=== PATIENT | male | born 1940 | race African-American/Black ===

== ENCOUNTER 2023-04-28 11:13 | Outpatient (AMB) | payer MEDICARE, MEDICAID, SELFPAY ==
--- NOTE | 2023-04-28 11:21 | AM.OFFWIN_ITS ---
Intake Vital Signs 04/28/23 11:28 Height 5 ft 10 in Weight 143 lb BMI 20.5 BP 160/100 H Blood Pressure Location Lt brachial Position Sitting Pulse 79 Pulse Source Pulse Oximeter Temp 97.8 F Pulse Oximetry (%) 98 Oxygen Delivery Method Room Air Intake Visit Reasons: Trouble urinating Intake Note: pt is here today for trouble urinating started yesterday Patient Tobacco Use Status: Never used Tobacco Allergies No Known Allergies Allergy (Verified 04/28/23 11:22) Do you need a note to return to daycare/school/sports/work: No HPI HPI Comments History of Present Illness Details Patient presents to the walk in today with complaints of urinary retention and right groin pain since last night. Patient reports he feels the urge to void but is not able to completely empty his bladder. Has a history of enlarged prostate which he takes medication for, has been taking as prescribed. He reports constant dull pain to the groin with intermittent sharp pains when he tries to void. Patient has been evaluated in the ER for this in the past requiring in-dwelling catheter. [facility] Social History Patient Tobacco Use Status: Never used Tobacco Review of Systems Const All systems reviewed & are unremarkable except as noted in HPI and below Physical Exam Vital Signs: Last Vital Signs Temp 97.8 F 04/28/23 11:28 Pulse 79 04/28/23 11:28 BP 160/100 H 04/28/23 11:28 Pulse Ox 98 04/28/23 11:28 Oxygen Delivery Method Room Air 04/28/23 11:28 BMI result Body Mass Index 20.5 General: awake, alert, oriented. Answers questions appropriately. Fully engaged in examination. Skin: warm, dry, intact HEENT: Normocephalic. Hearing intact. Cardiac: External chest normal in appearance. Respiratory: No cough, audible wheezing or stridor. Abdomen: bladder distension MS: No obvious swelling or deformities. Neurological: Oriented to person, place, time and situation. Thought process intact. Psychiatric: Appropriate mood and affect. Good judgment and insight. Results AMB Urinalysis, Automated UA Leukoctes 0 Silvestre/uL Last Edit by Zelalem Mcmahan CMA on 04/28/23 13:02 UA Nitrite Negative Last Edit by Zelalem Mcmahan CMA on 04/28/23 13:02 UA Urobilinogen 0.2 mg/dL Last Edit by Zelalem Mcmahan CMA on 04/28/23 13 :02 UA Protein 0 mg/dL Last Edit by Zelalem Mcmahan CMA on 04/28/23 13:02 UA pH 6.0 Last Edit by Zelalem Mcmahan CMA on 04/28/23 13:02 UA Blood 0 Douglas/uL Last Edit by Zelalem Mcmahan CMA on 04/28/23 13:02 UA Specific [place] 1.015 Last Edit by Zelalem Mcmahan CMA on 04/28/23 13:02 UA Ketone Negative Last Edit by Zelalem Mcmahan CMA on 04/28/23 13:02 UA Bilirubin 0 mg/dL Last Edit by Zelalem Mcmahan CMA on 04/28/23 13:02 UA Glucose 0 mg/dL Last Edit by Zelalem Mcmahan CMA on 04/28/23 13:02 Results Reviewed Results Reviewed: Laboratory Last Values Urine pH (Auto) 6.0 04/28/23 13:02 Specific [place] (Auto) 1.015 04/28/23 13:02 Urine Protein (Auto) 0 mg/dL 04/28/23 13:02 Glucose (UA)(Auto) 0 mg/dL 04/28/23 13:02 Urine Ketones (Auto) Negative 04/28/23 13:02 Urine Blood (Auto) 0 Douglas/uL 04/28/23 13:02 Urine Nitrite (Auto) Negative 04/28/23 13:02 Urine Bilirubin (Auto) 0 mg/dL 04/28/23 13:02 Urine Urobilinogen (Auto) 0.2 mg/dL 04/28/23 13:02 Leukocyte Esterase (Auto) 0 Silvestre/uL 04/28/23 13:02 Assessment & Plan Assessment & Plan (1) Urinary retention: Code(s): R33.9 - Retention of urine, unspecified (2) Enlarged prostate: Code(s): N40.0 - Benign prostatic hyperplasia without lower urinary tract symptoms Plan Patient presented to the walkin today with complaints of urinary retention and groin pain. UA completed, neg blood, neg leuks, neg nitrites No bladder scanner available. Treatment with urinary catheter not available at this walk-in Patient referred to the ER for E/M. Concern for blockage, stone, infection most likely requiring urinary catheter and potential for CT/US. Patient and son verbalize understanding, agree to plan. They prefer [facility] d/t proximity to their home and previously established patient relationship with the facility. Orders: Orders AMB Urinalysis Automated Today Z13.9 - Encounter for screening, unspecified Coding Level of Care Code Est Pt Level 4 (98364) Diagnoses Urinary retention R33.9 Enlarged prostate N40.0
[2023-04-28 11:28] VITALS: BP 160/100; PULSE 79; TEMP 36.6; O2SAT 98; BMI 20.5
== END 2023-04-28 13:18 | disposition home or self-care (01) ==
PROVIDERS: PCP Physician Assistant Medical; Visit Provider Registered Nurse Emergency
DX: R33.9 Retention of urine, unspecified (principal); N40.0 Benign prostatic hyperplasia without lower urinary tract symptoms
CPT/HCPCS: 81003; 99204

== ENCOUNTER 2023-05-06 09:32 | Outpatient (AMB) | payer MEDICARE, MEDICAID, SELFPAY ==
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
[2023-05-06 10:06] VITALS: BP 120/80; PULSE 73; O2SAT 79; BMI 20.8
== END 2023-05-06 10:50 | disposition home or self-care (01) ==
PROVIDERS: PCP Physician Assistant Medical; Visit Provider Psychiatry & Neurology Neurology
DX: F03.90 Unspecified dementia, unspecified severity, without behavioral disturbance, psychotic disturbance, mood disturbance, and anxiety (principal); F42.3 Hoarding disorder
CPT/HCPCS: 99204

== ENCOUNTER → 2023-05-06 09:32 | Outpatient (BNVA) | payer MEDICARE, MEDICAID, SELFPAY | PROVIDERS: PCP Physician Assistant Medical; Visit Provider Psychiatry & Neurology Neurology | DX: F03.90 Unspecified dementia, unspecified severity, without behavioral disturbance, psychotic disturbance, mood disturbance, and anxiety (principal); F42.3 Hoarding disorder | CPT/HCPCS: 99202 ==

== ENCOUNTER 2024-08-18 10:20 | Outpatient (REF) | payer MEDICARE, MEDICAID, SELFPAY ==
--- OUTSIDE RECORDS SUMMARY | 2024-08-18 11:48 | XMS_ITS | Encounter Summary ---
Author Organization [employer] Address [address] [place] [address] Care Team Providers Care Freight Conductor Name Role Phone Henok Francisco MD Primary Care Prov ider Godwin Lizama MD Unavailable [phone] Encounter Details Date Type Department Care Team (Latest Contact Info) Description 08/18/2024 Travel Social History Tobacco Use Types Packs/Day Years Used Date Smoking Tobacco: Never Smokeless Tobacco: Never Alcohol Use Standard Drinks/Week Comments Never 0 (1 standard drink = 0.6 oz pur e alcohol) Housing Stability Answer Date Recorded What is your housing situation today? I have raissa leal 12/18/[address] you li ve. Do you have problems with any of the following? Pests such as bugs, ants, or mice 12/18/2023 Food Insecurity Answer Date Recorded Within the past 12 months, y ou worried that your food would run out before you got money to buy more: Never True 12/18/2023 Within the past 12 months,th e food you bought just didn't last and you didn't have enough money to get more: Never True 08/2023 Transportation Answer Date Recorded In the past 12 months, has l ack of transportation kept you from medical appts, meetings, work or from getting things needed for daily living? Yes, it has kept me from medical appointments or getting medications. 12/18/2023 Utilities Answer Date Recorded In the past 12 months, has t he electric, gas, oil or water company threatened to shut off services in your home? No 12/18/2023 Internet Access Answer Date Recorded Internet Access Q1 No 12/18/2023 Internet Access Q2 I do not want or need it 08/2023 Sex and Gender Information Value Date Recorded Sex Assigned at Male 12/08/2023 12:36 PM EDT Legal Sex Male 3:25 PM EDT Gender Identity Male 12/08/2023 12:36 PM EDT Sexual Orientation Don't know 12/08/2023 12 :36 PM EDT documented as of this encounter Plan of Treatment Upcoming Encounters Date Type Department Care Team (Late st Contact Info) Description 10/22/2024 9:30 AM EDT Office Visit [facility] MED & PEDS [address] [place] [address] Henok Francisco MD [address] [place] [address] documented as of this encounter Visit Diagnoses Not on filedocumented in this encounter Care Teams Freight Conductor Relationship Specialty Start Date End Date Henok Francisco MD [address] [place] [address] PCP - General Internal Medicine 12/08/23 Godwin Lizama MD [address] [place] [address] Referring Physician Internal Medicine 12/17/23 documented as of this encounter
--- OUTSIDE RECORDS SUMMARY | 2024-08-18 11:48 | XMS_ITS | Encounter Summary ---
Author Organization [employer] Address [address] [place] [address] Care Team Providers Care Overhead Worker Name Role Phone Henok Francisco MD Primary Care Prov ider Godwin Lizama MD Unavailable [phone] Reason for Visit * Reason Onset Date Comments Call Back Request 06/17/2024 Encounter Details Date Type Department Care Team ([facility] st Contact Info) Description 06/17/2024 Telephone [facility] MEDICINE [address] [place] [address] Henok Francisco MD [address] [place], [place] [id number] Call Back Request Social History Tobacco Use Types Packs/Day Years Used Date Smoking Tobacco: Never Smokeless Tobacco: Never Alcohol Use Standard Drinks/Week Comments Never 0 (1 standard drink = 0.6 oz pur e alcohol) Housing Stability Answer Date Recorded What is your housing situation today? I have raissaarlene elal 12/18/[address] you li [...] t he electric, gas, oil or water [employer] threatened to shut off services in your [...] PM EDT documented as of this encounter Miscellaneous Notes * Telephone Encounter - Paolo Phillips - 06/17/2024 3:13 PM EST Tc milind Napier with [facility] services requesting a call back to Ask some questions regarding the Pt. The Questions Are : Does the Elder Have Dementia? Does the Elder have Decisional Capacity? Does he have a Health Care Proxy and if so is it Invoked? Are there any Concerns regarding Pt? Contact Quyen at [phone] Ext [phone] documented in this encounter Plan of Treatment Upcoming Encounters Date Type Department Care Team (Late st Contact Info) Description 10/22/2024 9:30 AM EDT Office Visit [facility] MED & PEDS [address] [place] [address] Henok Francisco MD [address] [place] [address] documented as of this encounter Visit Diagnoses Not on filedocumented in this encounter Care Teams Overhead Worker Relationship Specialty Start Date End Date Henok Francisco MD [address] [place] [address] PCP - General Internal Medicine 12/08/23 Godwin Lizama MD [address] [place] [address] Referring Physician Internal Medicine 12/17/23 documented as of this encounter
--- OUTSIDE RECORDS SUMMARY | 2024-08-18 11:48 | XMS_ITS | Clinical Summary ---
Author Organization [employer] Address [address] [place] [address] Care Team Providers Care Improvement Auditor Name Role Phone Henok Francisco MD Primary Care Prov ider Godwin Lizama MD Unavailable [phone] Allergies No known active allergies Medications No known medications Active Problems Problem Noted Date Diagnosed Date Primary hypertension 08/18/2024 Murmur, cardiac 12/25/2023 Assessment & Plan (12/25/2023 2:25 PM EDT): , asymptomatic, will order a echocardiogram, History of anemia 12/25/2023 Assessment & Plan (12/25/2023 2:26 PM EDT): Will order blood work to evaluate current status Immunization refused 12/25/2023 Encounter for physical examination 12/25/2023 Assessment & Plan (12/25/2023 2:30 PM EDT): Physical examination remarkable for asymptomatic heart murmur Patient has no complains His vital signs are within normal limits Will send blood test List of sheet metal smith was given Encounter for medical examination to establish c are 12/08/2023 Assessment & Plan (12/08/2023 4:21 PM EDT): Last pcp follow up 4-6 months ago Hospitalization: - Er visit on the past year: BPH, needed nascimento catheter which was removed Pmh: BPH Psh: back cyst removal All: - Meds: finasteride/tamsulosin Patient is AAOx3, no metal deficits, memory impairment, he is able to perform all of his daily activities without help, lives by himself, patient is able to manage his own money, will send letter Encounters Date Type Department Care Team Description 08/18/2024 9:15 AM EDT Office Visit [facility] CHC MED & PEDS [address] [place] [address] Godwin Lizama MD History of anemia (Primary Dx); Other urinary incontinence; Memory disturbance; Primary hypertension 08/18/2024 Travel 08/12/[address] [facility] MED & PEDS [address] [place] [address] Henok Francisco MD No Show 07/30/[address] [facility] MED & PEDS [address] [place] [address] Cathy Drake MD Appointment Request 07/30/2024 Travel 06/29/[address] [facility] MED & PEDS [address] [place] [address] Henok Francisco MD No Show 06/21/[address] [facility] MED & PEDS [address] [place] [address] Henok Francisco MD ER Follow-up 06/21/[address] [facility] MED & PEDS [address] [place] [address] Henok Francisco MD ER Follow-up 06/17/[address] [address] Henok Francisco MD Call Back Request from Last 3 Months Family History Medical History Relation Name Comments No Known Problems Father No Known Problems Mother Cancer Neg Hx Relation Name Status Comments Father Mother Social History Tobacco Use Types Packs/Day Years Used Date Smoking Tobacco: Never Smokeless Tobacco: Never Tobacco Cessation:Counseling Given: Not Answered Alcohol Use Standard Drinks/Week Comments Never 0 [...] the past 12 months, has t he [employer], gas, oil or water [employer] threatened to shut off services in your [...] Don't know 12/08/2023 12 :36 PM EDT Last Filed Vital Signs Vital Sign Reading Time Taken Comments Blood Pressure 152/75 08/18/2024 8:46 AM EDT Pulse 70 08/18/2024 8:46 AM EDT Temperature 36.7 ??C (98.1 ??F) 08/18/2024 8:46 AM ED T Respiratory Rate 14 08/18/2024 8:46 AM EDT Oxygen Saturation 99% 08/18/2024 8:46 AM EDT Inhaled Oxygen Concentration - - Weight 66.2 kg (146 lb) 08/18/2024 8:46 AM EDT Height 177.8 cm (5' 10 ) 08/18/2024 8:46 AM EDT Body Mass Index 20.95 08/18/2024 8:46 AM EDT Plan of Treatment Upcoming Encounters Date Type Department Care Team (Late st Contact Info) Description 10/22/2024 9:30 AM EDT Office Visit [facility] MED & PEDS [address] [place], [place] [phone] Henok Francisco MD [address] [place], [place] [phone] Health Maintenance Due Date Last Done Comments Dental Oral Exam 1938 Dental Prophylaxis 1938 Dental X-Ray: Bitewings 1938 Dental X-Ray: Full Mouth 1938 Depression Screening 1938 Lipid Panel 1938 Alcohol/Substance Use Screening 1950 Pneumococcal Vaccine: 50+ Years (1 of 1 - PCV) 1988 Zoster Vaccines (1 of 2) 1988 RSV Patients and Patients Aged 60 years or older (1 - 1-dose 75+ series) 2013 DTaP/Tdap/Td Vaccines (1 - Tdap) 07/22/2023 07/21/2023 COVID-19 Vaccine (3 - 2023-2 5 season) 2023 09/12/2020, 08/15/2020 Influenza Vaccine (#1) 2023 SDOH Screening 12/17/2024 12/18/2023 Tobacco Screening 12/24/2024 12/25/2023 HIB Vaccines Aged Out No longer eligi ble based on patient's age to complete this topic HPV Vaccines Aged Out No longer eligi ble based on patient's age to complete this topic Hepatitis A Vaccines Aged Out No long er eligible based on patient's age to complete this topic Hepatitis B Vaccines Aged Out No long er eligible based on patient's age to complete this topic IPV Vaccines Aged Out No longer eligi ble based on patient's age to complete this topic Meningococcal Vaccine Aged Out No rosa maria alma delia eligible based on patient's age to complete this topic RSV under 20 months Aged Out No longe r eligible based on patient's age to complete this topic Rotavirus Vaccines Aged Out No longer eligible based on patient's age to complete this topic Insurance [facility]IC[facility] STAND ADULT Care Teams Improvement Auditor Relationship Specialty Start Date End Date Henok Francisco MD [address] [place] [address] PCP - General Internal Medicine 12/08/23 Godwin Lizama MD [address] [place] [address] Referring Physician Internal Medicine 12/17/23
--- OUTSIDE RECORDS SUMMARY | 2024-08-18 11:48 | XMS_ITS | Encounter Summary ---
Author Organization [employer] Address [address] [place] [address] Care Team Providers Care Gage Designer Name Role Phone Henok Francisco MD Primary Care Prov ider Godwin Lizama MD Unavailable [phone] Reason for Visit * Reason Comments Follow-up HDF Encounter Details Date Type Department Care Team ([facility] Contact Info) Description 08/18/2024 9:15 AM EDT Office Visit [facility] MED & PEDS [address] [place] [address] Godwin Lizama MD [address] [place] [address] History of anemia (Primary Dx); Other urinary incontinence; Memory disturbance; Primary hypertension Social History Tobacco Use Types Packs/Day Years Used Date Smoking Tobacco: Never Smokeless Tobacco: Never Alcohol Use Standard Drinks/Week Comments Never 0 (1 standard drink = 0.6 oz pur e alcohol) Housing Stability Answer Date Recorded What is your housing situation today? I have raissaarlene leal 12/18/[address] you [...] PM EDT documented as of this encounter Last Filed Vital Signs Vital Sign Reading [...] Mass Index 20.95 08/18/2024 8:46 AM EDT documented in this encounter Plan of Treatment Upcoming Encounters Date Type Department Care Team (Late st Contact Info) Description 10/22/2024 9:30 AM EDT Office Visit [facility] MED & PEDS [address] [place] [address] Henok Francisco MD [address] [place] [address] Scheduled Orders Name Type Priority Associated Diagnoses Orde r Schedule CBC auto differential Lab Routine Memory disturbance Expected: 08/18/2024 (Approximate), Expires: 08/18/2025 Comprehensive Metabolic Panel Lab Routine Memory disturbance Expected: 08/18/2024 (Approximate), Expires: 08/18/2025 TSH W/Reflex to FT4 Lab Routine Memory disturbance Expected: 08/18/2024 (Approximate), Expires: 08/18/2025 Syphilis Screen Lab Routine Memory disturbance Expected: 08/18/2024, Expires: 08/18/2025 Vitamin B12/Folate, Serum Panel Lab Routine Memory disturbance Expected: 08/18/2024, Expires: 08/18/2025 documented as of this encounter Visit Diagnoses Diagnosis History of anemia- Primary Personal history of diseases of blood and blood-forming organs Other urinary incontinence Memory disturbance Memory loss Primary hypertension Unspecified essential hypertension documented in this encounter Care Teams Gage Designer Relationship Specialty Start Date End Date Henok Francisco MD [address] [place] [address] PCP - General Internal Medicine 12/08/23 Godwin Lizama MD [address] [place] [address] Referring Physician Internal Medicine 12/17/23 documented as of this encounter
[2024-08-18 14:14] LABS: MANUAL DIFF FLAG NO
[2024-08-18 14:21] LABS: Basophils Absolute Auto 0.1 X10*3/uL (0.0-0.2); Basophils Percent Auto 1.1 % (0-2); Eosinophils Absolute Auto 0.3 X10*3/uL (0.0-0.4); Eosinophils Percent Auto 4.7 % (0-4); Hematocrit 40.1 % (42.0-52.0); Hemoglobin 13.7 g/dl (14.0-18.0); Imm Gran Abs Auto 0.03 X10*3/uL (0.00-0.03); Imm Gran Pct Auto 0.5 % (0.0-0.4); Lymphocytes Absolute Auto 1.3 X10*3/uL (1.2-4.9); Mean Corpuscular HGB Conc 34.2 g/dl (31.0-36.0); Mean Corpuscular Hemoglobin 26.2 pg (27.0-33.0); Mean Corpuscular Volume 76.8 fL (80.0-98.0); Mean Platelet Volume 10.8 fL (9.4-12.4); Monocytes Absolute Auto 0.6 X10*3/uL (0.1-1.2); Monocytes Percent Auto 10.4 % (2-11); Neutrophils Absolute Auto 3.3 x10*3/uL (2.0-8.3); Neutrophils Percent Auto 59.3 % (45-73); Platelet Count 270 X10*3/uL (160-400); Red Blood Count 5.22 X10*6/uL (4.60-5.80); Red Cell Distribution Width 14.6 % (11.0-16.0); White Blood Count 5.6 X10*3/uL (4.8-10.8)
[2024-08-18 14:37] LABS: Alanine Aminotransferase 23 U/L (0-40); Albumin Level 4.3 g/dL (3.5-5.0); Alkaline Phosphatase 73 U/L (39-117); Anion Gap 10 (12-20); Aspartate Amino Transferase 36 U/L (5-37); Bilirubin Total 0.8 mg/dL (0.0-1.0); Blood Urea Nitrogen 15 mg/dL (9-16); Calcium 9.7 mg/dL (8.4-10.2); Carbon Dioxide 28 mmol/L (22-29); Chloride 109 mmol/L (96-108); Estimated Glomerular Filt Rate > 60; Glucose Random 70 mg/dL (60-115); Potassium 4.3 mmol/L (3.3-5.1); Sodium 143 mmol/L (135-145); Total Protein 7.2 g/dL (6.5-8.0)
[2024-08-18 14:46] LABS: TSH reflex Free T4 2.29 uIU/mL (0.32-4.0)
[2024-08-18 15:00] LABS: Folate 14.4 ng/mL (> or = 4.0); Vitamin B12 699 pg/mL (200-900)
[2024-08-19 04:11] LABS: Syphilis Screen Nonreactive (Nonreactive)
== END 2024-08-18 10:21 | disposition home or self-care (01) ==
LOC: HO.CHCLDS 10:20
PROVIDERS: Visit Provider Internal Medicine
DX: R41.3 Other amnesia (principal)
CPT/HCPCS: 36415; 80053; 82607; 82746; 84443; 85025; 86780